=== PATIENT | female | born 1985 | race Hispanic/Latino ===

== ENCOUNTER 2018-02-18 15:39 | Emergency (ER) | payer MEDICARE ==
[~2018-02-18] VITALS: Ht 149.9 cm; Wt 63.5 kg
[~2018-02-18 15:39] MED LIST: ADALAT CC60 MG PO; BACTRIM 400-801 EACH PO; HEMOCYTE PLUS1 EACH PO; ISONIAZID300 MG PO; KEPPRA; LABETALOL HCL200 MG PO; LABETALOL PO; LISINOPRIL; LOMOTIL TABLET1 EACH PO; NORCO 5-325 TA1 EACH PO; PANTOPRAZOLE SO40 MG PO; PREDNISONE20 MG PO; PREDNISONE5 MG PO; PROGRAF1 MG PO; PYRIDOXINE HCL50 MG PO; RENVELA800 MG PO; SENNA-S TABLET1 EA PO; SODIUM BICARBO650 MG PO; VALCYTE450 MG PO; ZOFRAN ODT4 MG PO
--- OUTSIDE RECORDS SUMMARY | 2018-02-18 15:42 | XMS REPORT ---
Author Author [facility] Address Unknown Phone Unavailable Care Team Providers Care Patient Financial Services Specialist Name Role Phone REBECA WORRELLALMA TRUE Unavailable Unavailable Problems This patient has no known problems. Allergies, Adverse Reactions, Alerts This patient has no known allergies or adverse reactions. Medications This patient has no known medications. Results Test Description Test Time Test Comments Text Results Atomic Results Result Comments URINE CULTURE 2016-08-16 10:48:00 CULTURE (BEAKER) (test ffwd=6712) ESCHERICHIA COLI >100,000 col/mL Escherichia coli Amikacin (test code=1) Ampicillin + Sulbactam (test code=6) Aztreonam (test code=32) Cefazolin (test code=9) Cefepime (test code=51) Cefoxitin (test code=68) Ceftazidime (test code=27) Ceftriaxone (test code=52) Ertapenem (test code=38) Gentamicin (test code=18) Levofloxacin (test code=22) Meropenem (test code=34) Nitrofurantoin (test code=23) Piperacillin + Tazobactam (test code=29) Tetracycline (test code=2) Tigecycline (test uhpj=062) Tobramycin (test code=25) Trimethoprim + Sulfamethoxazole (test code=47) RAPID STREP A [id number] 14:46:00* Test Item Value Reference Range Comments STREP A ANTIGEN (BEAKER) (test rkwt=020) Positive Negative URINALYSIS W/ [id number] 14:45:00* Test Item Value Reference Range Comments COLOR (BEAKER) (test ifst=897) Yellow CLARITY (BEAKER) (test qkzj=067) Hazy SPECIFIC GRAVITY UA (BEAKER) (test sqbt=363) 1.011 1.001-1.035 PH UA (BEAKER) (test yogs=307) 5.5 5.0-8.0 PROTEIN UA (BEAKER) (test qfhg=344) 30 mg/dL Negative GLUCOSE UA (BEAKER) (test clxn=979) Negative Negative KETONES UA (BEAKER) (test sxtd=760) Negative Negative BILIRUBIN UA (BEAKER) (test bwsd=690) Negative Negative BLOOD UA (BEAKER) (test xamz=642) Negative Negative NITRITE UA (BEAKER) (test sinq=487) Positive Negative LEUKOCYTE ESTERASE UA (BEAKER) (test fall=092) Large Negative UROBILINOGEN UA (BEAKER) (test orhh=505) 0.2 mg/dL 0.2-1.0 RBC UA (BEAKER) (test yejs=944) 0 /HPF WBC UA (BEAKER) (test ghum=107) 107 /HPF BACTERIA (BEAKER) (test fckg=409) Many MUCUS (BEAKER) (test lyxc=8678) Rare SQUAMOUS EPITHELIAL (BEAKER) (test kpit=222) 4 /HPF SOURCE(BEAKER) (test zdiq=0654) Urine, Clean Catch BASIC METABOLIC [id number] 14:33:00* Test Item Value Reference Range Comments SODIUM (BEAKER) (test eguf=186) 136 meq/L 136-145 POTASSIUM (BEAKER) (test sjos=540) 3.8 meq/L 3.5-5.1 CHLORIDE (BEAKER) (test onsv=066) 109 meq/L 98-107 CO2 (BEAKER) (test jneo=163) 17 meq/L 22-29 BLOOD UREA NITROGEN (BEAKER) (test peil=018) 26 mg/dL 7-21 CREATININE (BEAKER) (test nsjb=041) 1.47 mg/dL 0.57-1.25 GLUCOSE RANDOM (BEAKER) (test dawo=282) 117 mg/dL 70-105 CALCIUM (BEAKER) (test gkyl=961) 9.6 mg/dL 8.4-10.2 EGFR (BEAKER) (test okos=2750) 42 mL/min/1.73 sq m ESTIMATED GFR IS NOT ACCURATE CREATININE CLEARANCE IN PREDICTING GLOMERULAR FILTRATION RATE. ESTIMATED GFR IS NOT APPLICABLE FOR DIALYSIS PATIENTS. CBC W/PLT COUNT & AUTO [id number] 14:24:00* Test Item Value Reference Range Comments WHITE BLOOD CELL COUNT (BEAKER) (test zlje=892) 8.2 K/ L 4.0-10.0 RED BLOOD CELL COUNT (BEAKER) (test ccyz=852) 3.25 M/ L 4.00-5.00 HEMOGLOBIN (BEAKER) (test lobb=139) 10.6 GM/DL 12.0-15.0 HEMATOCRIT (BEAKER) (test aldf=899) 31.2 % 36.0-45.0 MEAN CORPUSCULAR VOLUME (BEAKER) (test aiar=276) 96.0 fL 82.0-99.0 MEAN CORPUSCULAR HEMOGLOBIN (BEAKER) (test wsns=385) 32.7 pg 27.0-33.0 MEAN CORPUSCULAR HEMOGLOBIN CONC (BEAKER) (test quav=274) 34.0 GM/DL 32.0-36.0 RED CELL DISTRIBUTION WIDTH (BEAKER) (test fnad=312) 14.5 % 10.3-14.2 PLATELET COUNT (BEAKER) (test bakw=692) 137 K/CU MM 150-430 MEAN PLATELET VOLUME (BEAKER) (test syij=755) 7.2 fL 6.5-10.5 NUCLEATED RED BLOOD CELLS (BEAKER) (test tgvm=413) 0 /100 WBC 0-0 NEUTROPHILS RELATIVE PERCENT (BEAKER) (test ocnk=545) 90 % LYMPHOCYTES RELATIVE PERCENT (BEAKER) (test jtco=799) 3 % MONOCYTES RELATIVE PERCENT (BEAKER) (test pumh=905) 7 % EOSINOPHILS RELATIVE PERCENT (BEAKER) (test klux=208) 1 % BASOPHILS RELATIVE PERCENT (BEAKER) (test suig=118) 0 % NEUTROPHILS ABSOLUTE COUNT (BEAKER) (test vedn=122) 7.38 K/ L 1.80-8.00 LYMPHOCYTES ABSOLUTE COUNT (BEAKER) (test fypn=726) 0.23 K/ L 1.48-4.50 MONOCYTES ABSOLUTE COUNT (BEAKER) (test lgjj=380) 0.54 K/ L 0.00-1.30 EOSINOPHILS ABSOLUTE COUNT (BEAKER) (test bxyx=253) 0.05 K/ L 0.00-0.50 BASOPHILS ABSOLUTE COUNT (BEAKER) (test nbjf=755) 0.00 K/ L 0.00-0.20 0.00
--- OUTSIDE RECORDS SUMMARY | 2018-02-18 15:42 | XMS REPORT | Clinical Summary ---
Author Author JUAN ANTONIO [facility] Organization [facility] Address Unknown Phone Unavailable Care Team Providers Care Barrel Inspector Name Role Phone Wiliam Jay Unavailable Sharpless PCP Allergies No Known Allergies Medications End Date Status Medication Sig Dispensed Refills Start Date Active sulfamethoxazole-trimetho Take 1 tablet 0 prim (BACTRIM,SEPTRA) (80 mg of 5 400-80 mg per tablet trimethoprim total) by mouth daily. Active SODIUM BICARBONATE, BULK, 650 mg by 0 MISC Miscellaneous route 5 pills bid. Active predniSONE (DELTASONE) 5 Take 5 mg by 0 11/01/ MG tablet mouth daily. 5 Active tacrolimus (PROGRAF) 1 MG Take by mouth 0 capsule every 12 6 (twelve) hours 4mg in am and 5mg in pm . Active labetalol (NORMODYNE) 200 Take 1 tablet 90 tablet 0 09/02/201 MG tablet (200 mg 7 total) by mouth 3 (three) times daily. 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 >initial IS of neoral/myfortic/pred, now on prograf/myfortic/pred Problem Noted Date Ovarian cyst 05/26/2015 Anemia 05/26/2015 Renal insufficiency 05/26/2015 S/P kidney transplant 05/26/2015 Constipation 11/29/2014 Last Assessment & Plan: She has not had a BM in three days however states that she has not been taking her colace. Recommended to start taking Miralax. Will continue to monitor. Numbness in both hands 11/15/2014 Last Assessment & Plan: Likely due to prograf. Should improve. Continue to monitor Immunosuppression 11/15/2014 Last Assessment & Plan: Prograf level is pending, we will adjust her dose accordingly. She does have a slight hand tremor. She states there is less numbness and tingling than before. Continue to monitor and adjust dose as necessary. Dysuria 11/08/2014 Last Assessment & Plan: Probably secondary to small bladder and stent. Will check UA C and S. Noncompliance 09/21/2013 Last Assessment & Plan: Improved. Will continue to follow closely Abdominal pain 02/09/2013 Renal failure 09/30/2012 ALEX (acute kidney injury) 09/30/2012 Pneumonia 07/21/2012 Fever 07/21/2012 ESRD (end stage renal disease) 01/03/2012 Last Assessment & Plan: 27 y/o female with ESRD secondary to HTN who is s/p bilateral nephrectomy, DDKT transplant, and transplant nephrectomy who presents today to discuss re-evaluation for listing for kidney transplant. Her first kidney failed largtely due to issues of non-compliance but the patient states that she has changed her life. She will need to have clearance by social work and all involved in her care prior to re-listing. Congenital multiple renal cysts 01/03/2012 Overview: Simple Renal Cysts Status post kidney transplant 07/19/2011 Last Assessment & Plan: Her creatinine is trending down. Today it is 0.92. She is producing adequate urine. Hypertension Last Assessment & Plan: Blood pressure is better controlled. She will continue to follow with her wool carder. Nonischemic cardiomyopathy Overview: secondary to severe hypertension L ast Assessment & Plan: Patient was scheduled to have a stress test performed and the patient says it was completed but we cannot locate the records in [facility]. Will review results in next MRB to discuss this patient. Renal disease Overview: etiology of renal disease with biopsy done at presentation showing arteriosclerosis and chronic tubular interstitial changes versus global glomerulosclerosis HTN (hypertension) Overview: etiology of renal disease with biopsy done at presentation showing arteriosclerosis and chronic tubular interstitial changes versus global glomerulosclerosis L ast Assessment & Plan: Blood pressure is controlled with a few elevated readings according to her logs. She will continue to follow with her wool carder. Family History Medical History Relation Name Comments Hypertension Father Relation Name Status Comments Father Social History Date Tobacco Use Types Packs/Day Years Used Never Smoker Smokeless Tobacco: Never Used Alcohol Use Drinks/Week oz/Week Comments Yes occasional Sex Assigned at Date Recorded Not on file Industry Job Start Date Occupation Not on file Not on file Not on file Travel End Travel History Travel Start No recent travel history available. Last Filed Vital Signs Not on file Plan of Treatment Health Maintenance Due Date Last Done Comments INFLUENZA VACCINE 11/10/2017 Implants Device Identifier Shelf Expiration Date Model / Serial / Lot Implanted Type Area Manufactur er 04/09/2017 [id number] / / [id number] Stent,Uret Polaris 5fr X 10cm - Uro Stent Left: Ureter [place] [id number] [employer] Implanted: Qty: 1 on 10/28/2014 by Kadi Paris MD Results Not on fileafter 02/17/2017 Insurance Payer Benefit Subscriber ID Type Phone Address Plan / Group MEDICARE MEDICARE A xxxxxxxxxx Medicare B [facility] xxxxxxxxx MEDICARE [facility] MEDICARE [facility] MEDICAID MEDICAID xxxxxxxxx Medicaid OF [place] Advance Directives For more information, please contact: [address] [address] Date Inactivated Comments Code Status Date Activated 11/06/2015 7:41 PM Full Code 11/06/2015 11:17 AM This code status was determined by: Patient 10/04/2015 11:49 PM Full Code 10/04/2015 5:26 PM This code status was determined by: Patient 05/28/2015 12:52 AM Full Code 05/26/2015 8:15 AM This code status was determined by: Patient 10/28/2014 1:08 PM Full Code 10/27/2014 4:52 AM This code status was determined by: Patient 10/02/2012 4:56 PM Code ONE 09/30/2012 7:56 PM
[2018-02-18] MEDS ORDERED: SODIUM CHLORIDE 0.9% 1000ML 1,000 ML IV STA (16:19)
[2018-02-18] MEDS ORDERED: ONDANSETRON HCL INJ 2 MG/ML VIAL IV STA (16:19)
--- NOTE | 2018-02-18 16:45 | NUR ---
PT MOVED FROM ER 4 TO ER 11 AND I ASSUMED PTS CARE. PT ALREADY IN A GOWN. PLACED HER ON THE MONITORS. PT STILL NEEDS AN IV
--- NOTE | 2018-02-18 17:35 | NUR ---
PT WAS C/O UPPER BACK PAIN AND ASKED FOR PAIN MED. SPOKE WITH ERP AND MORPHINE ORDERED
[2018-02-18 17:41] LABS: BASOPHILS % 0.1 % (0.0-1.0); EOSINOPHILS % 0.2 % (0.0-6.0); HEMATOCRIT 35.1 % (34.2-44.1); HEMOGLOBIN 11.4 g/dL (12.0-16.0); LYMPHOCYTES # (AUTO) 0.2 (1.0-3.2); MEAN CORPUSCULAR HEMOGLOBIN 29.9 pg (28-32); MEAN CORPUSCULAR HGB CONC 32.5 g/dL (31-35); MEAN CORPUSCULAR VOLUME 92.1 fL (81-99); MONOCYTES # (AUTO) 0.5 (0.2-0.8); MONOCYTES % 6.1 % (4.4-11.3); NEUTROPHILS # (AUTO) 7.6 (2.1-6.9); NEUTROPHILS % 91.2 % (38.7-80.0); PLATELET COUNT 187 x10e3/uL (140-360); RED BLOOD COUNT 3.81 x10e6/uL (3.6-5.1); RED CELL DISTRIBUTION WIDTH 13.6 % (11.7-14.4)
[2018-02-18] MEDS ORDERED: MORPHINE SULFATE 5 MG/ML VIAL IV ONE (17:45)
[2018-02-18] MEDS ORDERED: MORPHINE SULFATE INJ 4 MG/ML INJ IV ONE (18:00)
[2018-02-18 18:24] LABS: ALBUMIN 4.2 g/dL (3.5-5.0); ALBUMIN/GLOBULIN RATIO 1.4 (0.8-2.0); ANION GAP 16.4 mmol/L (8-16); CALCIUM 9.7 mg/dL (8.4-10.2); CREATININE, SERUM 1.25 mg/dL (0.57-1.11); POTASSIUM 4.4 mmol/L (3.5-5.1)
[2018-02-18 20:02] LABS: CLARITY,URINE CLEAR (CLEAR); COLOR,URINE YELLOW (YELLOW); LEUKOCYTE ESTERASE ,URINE NEGATIVE (NEGATIVE); NITRITE,URINE NEGATIVE (NEGATIVE); PROTEIN,URINE DIPSTICK NEGATIVE (NEGATIVE)
[2018-02-18 20:03] LABS: BACTERIA,URINE FEW /HPF; BILIRUBIN,URINE NEGATIVE (NEGATIVE); EPITHELIAL CELLS,URINE FEW /LPF; KETONES,URINE 1+ (NEGATIVE); RBC,URINE 21-50 /HPF (0-5); URINE UROBILINOGEN 0.2 mg/dL (0.2 - 1)
--- NOTE | 2018-02-18 20:05 | Diagnostic Imaging Report ---
EXAM: CT Abdomen and Pelvis WITHOUT contrast INDICATION: Severe abdominal pain and diarrhea. COMPARISON: None. TECHNIQUE: Abdomen and pelvis were scanned utilizing a multidetector helical scanner from the lung base to the pubic symphysis without administration of IV contrast. Absence of intravenous contrast decreases sensitivity for detection of focal lesions and vascular pathology. Coronal and sagittal reformations were obtained. Routine protocol was performed. IV CONTRAST: None. ORAL CONTRAST: Water RADIATION DOSE: Total DLP: 310.71 mGy*cm Estimated effective dose: (DLP x 0.015 x size factor) mSv COMPLICATIONS: None FINDINGS: LINES and TUBES: None. LOWER THORAX: Unremarkable HEPATOBILIARY: 9 mm low-attenuation the lateral segment of the left hepatic lobe on image 37 not well evaluated due to the lack of contrast. No biliary ductal dilation. GALLBLADDER: Absent. SPLEEN: No splenomegaly. PANCREAS: No focal masses or ductal dilatation. ADRENALS: No adrenal nodules KIDNEYS/URETERS: There are no areas in the renal fossa bilaterally. There is a kidney in the left iliac fossa, either transplant kidney versus less likely an ectopic pelvic kidney. GI TRACT: No abnormal distention, wall thickening, or evidence of bowel obstruction. Fluid attenuation within the colon is nonspecific, however, may be related to patient's reported diarrhea. Appendix is normal. Linear metallic densities in the right lower quadrant associated with mild stranding, nonspecific. PELVIC ORGANS/BLADDER: Unremarkable. LYMPH NODES: No lymphadenopathy. VESSELS: Unremarkable. PERITONEUM / RETROPERITONEUM: No free air or fluid. BONES: Remote healed left-sided rib fractures. SOFT TISSUES: Unremarkable. IMPRESSION: 1. No acute abdominal pelvic abnormality. 2. Absent or severely atrophic [place] kidneys, with a transplant kidney in the left iliac fossa not well evaluated with this noncontrast examination. Signed by: Dr. Danial Cameron M.D. on 02/18/2018 8:02 PM
[2018-02-18 21:01] VITALS: BP 135/97
== END 2018-02-18 21:10 | disposition home or self-care (01) ==
LOC: ER 15:39
DX: R11.2 Nausea with vomiting, unspecified (principal); R19.7 Diarrhea, unspecified; I10 Essential (primary) hypertension; Z94.0 Kidney transplant status
CPT/HCPCS: 36415; 74176; 80053; 81001; 84702; 85025; 99283; J2270; J2405; J7030

== ENCOUNTER 2018-12-14 16:30 | Emergency (ER) | payer MEDICARE ==
[~2018-12-14] VITALS: Ht 149.9 cm; Wt 63.5 kg
[2018-12-14] MEDS ORDERED: ACETAMINOPHEN 325 MG TAB PO ONE (17:04)
[2018-12-14] MEDS ORDERED: SODIUM CHLORIDE 0.9% 1000ML 1,000 ML IV STA ×2 (17:04)
[2018-12-14] MEDS ORDERED: CEFTRIAXONE SOD 1 GM/NS 50 ML 50 ML IV ONE (17:15)
[2018-12-14 17:32] LABS: BILIRUBIN,URINE SMALL (NEGATIVE); CLARITY,URINE SL CLOUDY (CLEAR); COLOR,URINE YELLOW (YELLOW); KETONES,URINE 1+ (NEGATIVE); LEUKOCYTE ESTERASE ,URINE TRACE (NEGATIVE); NITRITE,URINE NEGATIVE (NEGATIVE); PROTEIN,URINE DIPSTICK 1+ (NEGATIVE); URINE UROBILINOGEN 0.2 mg/dL (0.2 - 1)
[2018-12-14 17:46] LABS: BACTERIA,URINE FEW /HPF; EPITHELIAL CELLS,URINE FEW /LPF; WBC,URINE (MAN) 0-5 /HPF (0-5)
[2018-12-14 18:33] LABS: BASOPHILS % 0.1 % (0.0-1.0); EOSINOPHILS % 0.1 % (0.0-6.0); HEMATOCRIT 31.1 % (34.2-44.1); HEMOGLOBIN 9.8 g/dL (12.0-16.0); LYMPHOCYTES # (AUTO) 0.2 (1.0-3.2); LYMPHOCYTES % 2.9 % (18.0-39.1); MEAN CORPUSCULAR HEMOGLOBIN 29.6 pg (28-32); MEAN CORPUSCULAR HGB CONC 31.5 g/dL (31-35); MONOCYTES # (AUTO) 0.5 (0.2-0.8); MONOCYTES % 6.2 % (4.4-11.3); NEUTROPHILS # (AUTO) 7.4 (2.1-6.9); NEUTROPHILS % 89.6 % (38.7-80.0); PLATELET COUNT 184 x10e3/uL (140-360); RED BLOOD COUNT 3.31 x10e6/uL (3.6-5.1); RED CELL DISTRIBUTION WIDTH 14.7 % (11.7-14.4)
[2018-12-14] MEDS ORDERED: ONDANSETRON HCL INJ 2MG/ML 2ML 2 MG/ML VIAL IV ONE (18:45)
[2018-12-14] MEDS ORDERED: MORPHINE SULFATE 5 MG/ML VIAL IV ONE (18:45)
[2018-12-14 18:56] LABS: ALBUMIN 2.9 g/dL (3.5-5.0); ALBUMIN/GLOBULIN RATIO 0.6 (0.8-2.0); ANION GAP 22.5 mmol/L (8-16); CALCIUM 10.1 mg/dL (8.4-10.2); CREATININE, SERUM 2.44 mg/dL (0.57-1.11); POTASSIUM 3.5 mmol/L (3.5-5.1)
[2018-12-14] MEDS ORDERED: MORPHINE SULFATE INJ 4 MG/ML INJ 1ML IV ONE (19:00)
--- NOTE | 2018-12-14 19:06 | Diagnostic Imaging Report ---
EXAMINATION: CHEST SINGLE (PORTABLE) COMPARISON: No relevant priors INDICATION: Fever, chills, vomiting ^chest pain ^[id number] ^1828 DISCUSSION: Frontal view of the chest obtained at 1838 hours. HEART AND MEDIASTINUM: The cardiomediastinal silhouette is unremarkable. LINES: None. LUNGS: The lungs are well inflated and clear. No pneumonia or pulmonary edema. PLEURA: No pleural effusion or pneumothorax. BONES AND SOFT TISSUES: No focal osseous lesion. There are surgical clips in the right axilla. IMPRESSION: No acute cardiopulmonary disease. Signed by: Dr. Chloe Hope MD on 12/14/2018 7:03 PM
--- NOTE | 2018-12-14 19:20 | NUR ---
Severe Sepsis Time: 1827 Source: suspected intra abdominal (1644) SIRS: HR 137 RR 24 (1644) Organ Dysfunction: Cr 2.44 (1827) Blood cultures collected #1 Lactic Acid collected: 0.9, no indications for repeat [employer] Spectrum Antibiotic given: Ceftriaxone 1715 Pt required transfer to [facility] 2/ renal transplant with concerns of rejection Diagnosis: Severe Sepsis, Acute Renal Failure meter supervisor informed of indications for tranfer: higher level of care, transplant service Pt signed out to Dr. Parisi to complete transfer process
--- NOTE | 2018-12-14 19:30 | NUR ---
transfer initiated-spoke to chandrakant at [facility]
--- NOTE | 2018-12-14 20:43 | NUR ---
[facility] CALLED TO OBTAIN [facility]S GROUND TRANSPORT TO [facility], ETA 30-40 MIN.
[2018-12-14 21:27] LABS: BAND NEUTROPHILS % (MANUAL) 4 %; LYMPHOCYTES % (MANUAL) 3 % (19-48); MONOCYTES % (MANUAL) 4 % (3.4-9.0); NEUTROPHILS % (MANUAL) 89 % (40-74); NUCLEATED RED BLOOD CELLS 1
[2018-12-14 21:28] LABS: ANISOCYTOSIS SLIGHT; HYPOCHROMASIA SLIGHT; PLATELET ESTIMATE ADEQUATE; PLATELET MORPHOLOGY COMMENT NORMAL; RBC MORPHOLOGY COMMENT NORMAL
[2018-12-14 21:54] VITALS: BP 134/94
== END 2018-12-14 21:58 | disposition other institution (70) ==
LOC: ER 16:30
DX: R50.9 Fever, unspecified (principal); R65.20 Severe sepsis without septic shock; Z94.0 Kidney transplant status; R11.2 Nausea with vomiting, unspecified; N17.9 Acute kidney failure, unspecified
CPT/HCPCS: 36415; 71045; 80053; 81001; 83605; 85025; 87040; 87086; 87400; 93005; 99284; J0696; J2270; J2405; J7030

== ENCOUNTER 2020-07-04 00:03 | Emergency (ER) | payer OTHER ==
[~2020-07-04] VITALS: Ht 149.9 cm; Wt 72.6 kg
[2020-07-04] MEDS ORDERED: LORAZEPAM 1 MG TAB PO ONE (01:00)
[2020-07-04] MEDS ORDERED: ONDANSETRON HCL 4 MG ORAL DISINTEGRATING TAB ONE (01:01)
[2020-07-04] MEDS ORDERED: LORAZEPAM 1 MG TAB ONE (01:03)
[2020-07-04] MEDS ORDERED: DONNATAL/LIDOCAINE/MAALOX 30 ML SUSP PO ONE (01:30)
[2020-07-04] MEDS ORDERED: MAGNESIUM/ALUMINUM/SIMETHICONE 30 ML UDC PO ONE (01:45)
[2020-07-04] MEDS ORDERED: LIDOCAINE VISC 2% SOLN 15 ML UDC PO ONE (01:45)
[2020-07-04] MEDS ORDERED: BELLADONNA ALK/PHENOBARBITAL 5 ML UDC PO ONE (01:45)
[2020-07-04] MEDS ORDERED: CLONAZEPAM0.5 MG PO (02:07)
== END 2020-07-04 02:35 | disposition home or self-care (01) ==
LOC: ER 01:34
DX: F41.1 Generalized anxiety disorder (principal); I10 Essential (primary) hypertension; Z86.73 Personal history of transient ischemic attack (TIA), and cerebral infarction without residual deficits; Z94.0 Kidney transplant status
CPT/HCPCS: 93005; 99283; Q0162

== ENCOUNTER 2021-05-10 18:27 | Emergency (ER) | payer SELFPAY ==
[~2021-05-10] VITALS: Ht 149.9 cm; Wt 72.6 kg
[~2021-05-10 18:27] MED LIST changes: +CLONAZEPAM0.5 MG PO
[2021-05-10] MEDS ORDERED: SODIUM CHLORIDE 0.9% 1000ML 1,000 ML IV STA (18:38)
[2021-05-10] MEDS ORDERED: ONDANSETRON HCL INJ 2MG/ML 2ML 2 MG/ML VIAL IV STA ×2 (18:38→18:43)
[2021-05-10] MEDS ORDERED: Morphine 4mg Syringe 4 MG/ML INJ IV STA (18:38)
[2021-05-10] MEDS ORDERED: Morphine 4mg Syringe 4 MG/ML INJ IV ONE (18:45)
[2021-05-10 18:51] LABS: BASOPHILS % 0.4 % (0.0-1.0); EOSINOPHILS # (AUTO) 0.1 (0.0-0.4); EOSINOPHILS % 0.9 % (0.0-6.0); HEMATOCRIT 34.5 % (34.2-44.1); HEMOGLOBIN 11.6 g/dL (12.0-16.0); LYMPHOCYTES # (AUTO) 1.4 (1.0-3.2); LYMPHOCYTES % 20.3 % (18.0-39.1); MEAN CORPUSCULAR HGB CONC 33.6 g/dL (31-35); MONOCYTES # (AUTO) 0.5 (0.2-0.8); MONOCYTES % 6.6 % (4.4-11.3); NEUTROPHILS % 71.5 % (38.7-80.0); PLATELET COUNT 279 x10e3/uL (140-360); RED BLOOD COUNT 3.52 x10e6/uL (3.6-5.1); RED CELL DISTRIBUTION WIDTH 13.8 % (11.7-14.4)
[2021-05-10 19:13] LABS: ALBUMIN/GLOBULIN RATIO 0.9 (0.8-2.0); ANION GAP 16.1 mmol/L (8-16); CALCIUM 10.6 mg/dL (8.4-10.2); CREATININE, SERUM 1.55 mg/dL (0.57-1.11); POTASSIUM 4.1 mmol/L (3.5-5.1)
[2021-05-10] MEDS ORDERED: SODIUM CHLORIDE 0.9% 50ML 0 ML ONE (20:03)
[2021-05-10] MEDS ORDERED: IOPAMIDOL 370 MG/ML 200 ML INFUS..BTL INJ ONE (20:03)
[2021-05-10 21:21] LABS: AMPHETAMINES SCREEN,URINE NEGATIVE (NEGATIVE); BENZODIAZEPINES SCREEN,URINE NEGATIVE (NEGATIVE); CLARITY,URINE SL CLOUDY (CLEAR); COLOR,URINE YELLOW (YELLOW); LEUKOCYTE ESTERASE ,URINE NEGATIVE (NEGATIVE); NITRITE,URINE NEGATIVE (NEGATIVE); PHENCYCLIDINE SCREEN,URINE NEGATIVE (NEGATIVE); PROTEIN,URINE DIPSTICK 2+ (NEGATIVE)
[2021-05-10 21:22] LABS: KETONES,URINE NEGATIVE (NEGATIVE); URINE UROBILINOGEN 0.2 mg/dL (0.2 - 1)
[2021-05-10 21:27] LABS: BACTERIA,URINE FEW /HPF; EPITHELIAL CELLS,URINE MODERATE /LPF; RBC,URINE 0-5 /HPF (0-5); WBC,URINE (MAN) 0-5 /HPF (0-5)
[2021-05-10] MEDS ORDERED: ULTRAM 50MG50 MG PO (22:12)
[2021-05-10 22:35] VITALS: BP_SYST 106
== END 2021-05-10 22:30 | disposition home or self-care (01) ==
LOC: ER 18:34
DX: R10.30 Lower abdominal pain, unspecified (principal); R11.2 Nausea with vomiting, unspecified; I10 Essential (primary) hypertension; Z86.73 Personal history of transient ischemic attack (TIA), and cerebral infarction without residual deficits; Z94.0 Kidney transplant status
CPT/HCPCS: 36415; 74176; 80053; 80307; 81001; 83690; 84702; 85025; 99284; J2270; J2405; J7030; Q9967

== ENCOUNTER 2021-12-22 12:24 | Emergency (ER) | payer OTHER ==
[~2021-12-22] VITALS: Ht 149.9 cm; Wt 72.6 kg
[~2021-12-22 12:24] MED LIST changes: +ULTRAM 50MG50 MG PO
[2021-12-22] MEDS ORDERED: IBUPROFEN 600 MG TAB PO ONE (12:45)
[2021-12-22] MEDS ORDERED: ACETAMINOPHEN 325 MG TAB PO ONE (12:45)
[2021-12-22] MEDS ORDERED: IBUPROFEN600 MG PO (13:56)
== END 2021-12-22 14:53 | disposition home or self-care (01) ==
LOC: ER 12:33
DX: M25.571 Pain in right ankle and joints of right foot (principal); X50.1XXA Overexertion from prolonged static or awkward postures, initial encounter; Y93.01 Activity, walking, marching and hiking; Y92.89 Other specified places as the place of occurrence of the external cause; Z94.0 Kidney transplant status; I10 Essential (primary) hypertension; F41.9 Anxiety disorder, unspecified; Z86.73 Personal history of transient ischemic attack (TIA), and cerebral infarction without residual deficits
CPT/HCPCS: 99283

== ENCOUNTER 2021-12-27 12:15 | Emergency (ER) | payer SELFPAY ==
[~2021-12-27] VITALS: Ht 149.9 cm; Wt 74.8 kg
[~2021-12-27 12:15] MED LIST changes: +IBUPROFEN600 MG PO
[2021-12-27] MEDS ORDERED: SODIUM CHLORIDE 0.9% 1000ML 1,000 ML IV ONE ×2 (12:45→16:45)
[2021-12-27 12:58] LABS: BASOPHILS % 0.2 % (0.0-1.0); EOSINOPHILS % 0.2 % (0.0-6.0); HEMATOCRIT 36.9 % (34.2-44.1); HEMOGLOBIN 11.9 g/dL (12.0-16.0); LYMPHOCYTES # (AUTO) 0.4 (1.0-3.2); LYMPHOCYTES % 3.2 % (18.0-39.1); MEAN CORPUSCULAR HEMOGLOBIN 33.8 pg (28-32); MEAN CORPUSCULAR HGB CONC 32.2 g/dL (31-35); MEAN CORPUSCULAR VOLUME 104.8 fL (81-99); MONOCYTES # (AUTO) 0.7 (0.2-0.8); NEUTROPHILS # (AUTO) 9.8 (2.1-6.9); NEUTROPHILS % 89.8 % (38.7-80.0); PLATELET COUNT 210 x10e3/uL (140-360); RED BLOOD COUNT 3.52 x10e6/uL (3.6-5.1); RED CELL DISTRIBUTION WIDTH 13.2 % (11.7-14.4)
[2021-12-27 13:09] LABS: INR 0.96; PROTHROMBIN TIME 13.7 seconds (11.9-14.5)
[2021-12-27 13:10] LABS: PARTIAL THROMBOPLASTIN TIME 39.6 seconds (23.8-35.5)
[2021-12-27 13:10] LABS: CLARITY,URINE TURBID (CLEAR); COLOR,URINE YELLOW (YELLOW); LEUKOCYTE ESTERASE ,URINE MODERATE (NEGATIVE)
[2021-12-27 13:11] LABS: KETONES,URINE NEGATIVE (NEGATIVE); NITRITE,URINE POSITIVE (NEGATIVE); PROTEIN,URINE DIPSTICK 2+ (NEGATIVE); URINE UROBILINOGEN 0.2 mg/dL (0.2 - 1)
[2021-12-27 13:19] LABS: BACTERIA,URINE MANY /HPF; EPITHELIAL CELLS,URINE MODERATE /LPF; RBC,URINE >50 /HPF (0-5); WBC,URINE (MAN) >50 /HPF (0-5)
[2021-12-27 13:19] LABS: ALBUMIN 3.7 g/dL (3.5-5.0); ALBUMIN/GLOBULIN RATIO 0.8 (0.8-2.0); ANION GAP 17.2 mmol/L (8-16); CALCIUM 9.4 mg/dL (8.4-10.2); CREATININE, SERUM 1.94 mg/dL (0.57-1.11); POTASSIUM 4.2 mmol/L (3.5-5.1)
[2021-12-27 13:28] LABS: CREATINE KINASE MB 0.4 ng/mL (0-5.0)
[2021-12-27] MEDS ORDERED: Morphine 4mg INJECTION 4 MG/ML INJ IV STA ×2 (13:45→16:41)
[2021-12-27] MEDS ORDERED: ONDANSETRON HCL INJ 2MG/ML 2ML 2 MG/ML VIAL IV STA ×2 (13:45→16:41)
[2021-12-27] MEDS ORDERED: Vancomycin IV 1 GM in SODIUM CHLORIDE 0.9% 250ML 250 ML IV ONE (14:00)
[2021-12-27] MEDS ORDERED: SODIUM CHLORIDE 0.9% 1000ML 1,000 ML IV STA (14:40)
[2021-12-27] MEDS ORDERED: LABETALOL HCL 5 MG/ML 20ML VIAL IV STA (15:15)
[2021-12-27] MEDS ORDERED: ACETAMINOPHEN 325 MG TAB PO ONE (15:30)
[2021-12-27 17:40] VITALS: BP 131/94
== END 2021-12-27 17:20 | disposition other institution (70) ==
LOC: ER 12:33
DX: R50.9 Fever, unspecified (principal); A41.9 Sepsis, unspecified organism; N28.9 Disorder of kidney and ureter, unspecified; N12 Tubulo-interstitial nephritis, not specified as acute or chronic; Z94.0 Kidney transplant status; Z20.822 Contact with and (suspected) exposure to COVID-19
CPT/HCPCS: 36415; 71045; 74176; 80053; 81001; 82550; 82553; 83605; 84484; 84702; 85025; 85610; 85730; 87040; 87086; 87186; 93005; 99284; J0692; J2270; J2405; J3370; J3490; J7030; J7050; U0002

== ENCOUNTER 2024-10-19 11:23 | Emergency (ER) | payer SELFPAY ==
[~2024-10-19] VITALS: Ht 149.9 cm; Wt 78.9 kg
[2024-10-19] MEDS: ONDANSETRON HCL INJ 2MG/ML 2ML 2 MG/ML VIAL IV STA (12:50)
[2024-10-19] MEDS: SODIUM CHLORIDE 0.9% 1000ML 1,000 ML IV SCH (12:50)
[2024-10-19 12:59] LABS: BASOPHILS % 0.6 % (0.0-1.0); EOSINOPHILS % 0.7 % (0.0-6.0); LYMPHOCYTES % 11.4 % (18.0-39.1); MONOCYTES % 5.2 % (4.4-11.3); NEUTROPHILS % 81.8 % (38.7-80.0); RED CELL DISTRIBUTION WIDTH 13.6 % (11.7-14.4)
[2024-10-19 13:20] LABS: EST GLOMERULAR FILTRATION RATE 27.0 ML/MIN (>=60)
[2024-10-19 13:27] LABS: LEUKOCYTE ESTERASE ,URINE NEGATIVE (NEGATIVE); PROTEIN,URINE DIPSTICK >=300 (NEGATIVE); URINE UROBILINOGEN 0.2 mg/dL (0.2 - 1)
[2024-10-19] MEDS: TRAMADOL HCL 50 MG TAB PO ONE (13:37)
[2024-10-19 13:53] LABS: WBC,URINE (MAN) 0-5 /HPF (0-5)
[2024-10-19 13:54] LABS: EPITHELIAL CELLS,URINE FEW /LPF
[2024-10-19] MEDS ORDERED: CEFDINIR300 MG PO (15:07)
[2024-10-19] MEDS ORDERED: ONDANSETRON ODT4 MG PO (15:07)
[2024-10-19 15:44] VITALS: PULSE 104; RESP 16; TEMP 98.3
[2024-10-19 16:20] VITALS: BP 146/92; PULSE 104; RESP 16; TEMP 98.3; O2SAT 99
== END 2024-10-19 15:42 | disposition home or self-care (01) ==
LOC: ER 12:03
DX: R11.2 Nausea with vomiting, unspecified (principal); N39.0 Urinary tract infection, site not specified; N28.9 Disorder of kidney and ureter, unspecified; F41.9 Anxiety disorder, unspecified; R42 Dizziness and giddiness; Z94.0 Kidney transplant status; I10 Essential (primary) hypertension; D64.9 Anemia, unspecified; R94.31 Abnormal electrocardiogram [ECG] [EKG]; Z86.73 Personal history of transient ischemic attack (TIA), and cerebral infarction without residual deficits
CPT/HCPCS: 36415; 80053; 81001; 84702; 85025; 87086; 87186; 93005; 99284; J2405; J7030